=== PATIENT | female | born 1980 | race Two or more races ===

== ENCOUNTER → 2024-03-06 | Outpatient (BNVA) | payer MEDICAID, SELFPAY | END | disposition home or self-care (01) | PROVIDERS: PCP Nurse Practitioner Primary Care; Referring Provider Nurse Practitioner Primary Care; Visit Provider Nurse Practitioner Primary Care | DX: Z00.01 Encounter for general adult medical examination with abnormal findings (principal); Z23 Encounter for immunization; Z11.1 Encounter for screening for respiratory tuberculosis; N83.202 Unspecified ovarian cyst, left side; R53.83 Other fatigue; Z13.220 Encounter for screening for lipoid disorders; Z11.3 Encounter for screening for infections with a predominantly sexual mode of transmission; Z13.1 Encounter for screening for diabetes mellitus | CPT/HCPCS: 90471; 90715; 99215; A9270 ==

== ENCOUNTER → 2024-03-18 | Outpatient (BNVA) | payer MEDICAID, SELFPAY | END | disposition home or self-care (01) | PROVIDERS: PCP Nurse Practitioner Primary Care; Referring Provider Nurse Practitioner Primary Care; Visit Provider Nurse Practitioner Primary Care | DX: E78.2 Mixed hyperlipidemia (principal); R94.5 Abnormal results of liver function studies; R82.90 Unspecified abnormal findings in urine; Z71.2 Person consulting for explanation of examination or test findings | CPT/HCPCS: 99212; G0463 ==

== ENCOUNTER → 2024-03-28 | Outpatient (BNVA) | payer MEDICAID, SELFPAY | END | disposition home or self-care (01) | PROVIDERS: PCP Nurse Practitioner Family; Referring Provider Nurse Practitioner Family; Visit Provider Nurse Practitioner Family | DX: Z23 Encounter for immunization (principal) | CPT/HCPCS: 90707; 99212 ==

== ENCOUNTER 2024-05-26 | Emergency (ER) | payer MEDICAID, SELFPAY ==
[2024-05-26 00:01] VITALS: BMI 25.8
[2024-05-26 00:16] VITALS: BP 163/99; PULSE 75; RESP 18; TEMP 36.8; O2SAT 95
--- NOTE | 2024-05-26 00:21 | XR_ITS ---
Examination: Shoulder,right, 3 views Technique: Shoulder AP internal rotation, AP external rotation, Y view shoulder, 3 views Exam date and time :May 26, 2024 0031 hrs. Indications: Patient fell while snowboarding yesterday with injury to the shoulder, shoulder pain Findings: No shoulder fracture or dislocation No AC joint separation Impression: No shoulder fracture
--- NOTE | 2024-05-26 00:32 | PD.EDRME ---
Rapid Medical Screening Exam RME Arrival date/time: 05/26/24 00:00 43 yo f present to ED for c/o of shoulder injury I have greeted and performed a focused initial assessment of this patient. A comprehensive ED assessment and evaluation of the patient, analysis of all test results, and completion of the medical decision making process will be conducted by additional ED providers. Chief Complaint: Extremity Injury, Upper Time Seen by Provider: 05/26/24 00:03 Vital signs: Vital Signs Temperature 98.3 F 05/26/24 00:16 Pulse Rate 75 05/26/24 00:16 Respiratory Rate 18 05/26/24 00:16 Blood Pressure 163/99 H 05/26/24 00:16 Pulse Oximetry (%) 95 05/26/24 00:16 Oxygen Delivery Method Room Air 05/26/24 00:16
[2024-05-26] MEDS: KETOROLAC INJ 60 MG/2 ML VIAL 30 MG IM (00:37)
--- NOTE | 2024-05-26 01:42 | PRELIM_ITS ---
Radiographs of the right shoulder joint (3 views) May 26, 2024 at 0031 hours Clinical history: Shoulder injury snowboarding. Comparison: None. Findings: The glenohumeral and acromioclavicular joints are normal in configuration and alignment. The subacromial space and periarticular soft tissues are normal with no evidence of calcification. The visualized bones are of normal configuration and density. There is no fracture or dislocation. Impression: Unremarkable radiographs of the right shoulder joint. Report Electronically Signed By: Collin Dupree 05/26/2024 1:41:47 AM [EST]
--- NOTE | 2024-05-26 01:47 | PD.EDUPEX ---
Upper Extremity Injury RME/HPI General Chief Complaint: Extremity Injury, Upper Stated Complaint: fall Time Seen by Provider: 05/26/24 00:03 Arrival date/time: 05/26/24 00:00 43 year old female present to emergency room with c/o of right shoulder injury while snowboarding. LOCATION: shoulder SEVERITY: Symptoms are described as being severe with limitations on activities of daily living QUALITY: Symptoms are described as being dull or achy CONTEXT: fall on shoulder while snowboarding DURATION/TIMING: The symptoms started approximately 1 day ago and have been constant this then. ASSOCIATED SYMPTOMS: The patient is unable to identify any other associated symptoms. MODIFYING FACTORS: The patient is unable to identify any alleviating or aggravating symptoms. PERTINENT ROS: no fevers, no headache, no neck or chest pain, no unexplained nausea or vomiting, no focal neurological deficits REVIEW OF SYSTEMS: See History of Present Illness - with the exception of those mentioned in the history of present illness, all other systems reviewed and reported as negative GENERAL: In general the patient is awake, interactive, in an emergency department gurney. HEAD/EYES/EARS/NOSE/THROAT: normo-cephalic, atraumatic, mucus membranes are moist, anicteric, palpebral conjunctiva is pink, trachea is midline. CARDIOVASCULAR: regular rate and regular rhythm, no murmurs, heart sounds are not distant, strong pulses in all four extremities that are equal and symmetric bilateral upper and lower extremities, normal capillary refill. CHEST/PULMONARY: normal chest rise and fall, good air movement, clear to auscultation bilaterally, normal inspiratory to expiratory ratios without evidence of respiratory distress. NECK: No midline/Paraspinal tenderness, no step off ROM/Strenght intact No Kernig and bruzinski sign. No trauma ABDOMEN: soft, not tender, no masses appreciated BACK: normal range of motion without pain. NEUROLOGICAL: cranio-facial features are symmetric, moves all four extremities equally without obvious limitations or weakness. EXTREMITY: right shoulder tenderness, able to touch opposite shoulder and reach for the ceiling with minimal discomfort no tenderness to palpation over the long bones or large joints of the bilateral lower extremities, no joint swelling, no joint erythema, no signs of trauma, no unilateral leg swelling and no peripheral edema. SKIN: warm, dry, well-perfused, no jaundice, no rash, no telangiectasias or petechia. PSYCH: calm, cooperative, no evidence of psychosis or agitation RME / HPI RME / HPI narrative: 05/26/24 00:00 43 yo f present to ED for c/o of shoulder injury I have greeted and performed a focused initial assessment of this patient. A comprehensive ED assessment and evaluation of the patient, analysis of all test results, and completion of the medical decision making process will be conducted by additional ED providers. Related Data Home Medications ?Medication ?Instructions ?Recorded ?Confirmed No Known Home Medications 03/28/24 03/28/24 Allergies Allergy/AdvReac Type Severity Reaction Status Date / Time Penicillins Allergy Intermediate Rash Verified 05/26/24 00:06 acetaminophen (From [place]) Allergy Verified 05/26/24 00:06 hydrocodone (From [place]) Allergy Verified 05/26/24 00:06 Course Course Course Narrative: shoulder xray no acute findings rice protocol take tylenol or motrin as need rice protocol stretching exercises Quality Measures none Orders Category Date Time Status XR shoulder RT min 2V Stat Exams 05/26/24 00:21 Taken Ketorolac Inj [Toradol Inj] Med 05/26/24 00:21 Discontinued 30 mg IM X1 ONE Vital Signs Vital signs: Vital Signs Temperature 98.3 F 05/26/24 00:16 Pulse Rate 75 05/26/24 00:16 Respiratory Rate 18 05/26/24 00:16 Blood Pressure 163/99 H 05/26/24 00:16 Pulse Oximetry (%) 95 05/26/24 00:16 Oxygen Delivery Method Room Air 05/26/24 00:16 Extremity Injury Patient data External records reviewed:: [facility] previous records Clinical information provided by:: patient Social determinants that could affect healthcare access:: none Patient has the following chronic illnesses:: n/a How is presenting disease/condition affected by chronic disease/condition?: no chronic disease Evaluation data The following diagnostics were reviewed and interpreted by me:: radiology exam(s) Lab and/or radiology exams considered but not ordered:: n/a Interpretation Summary: xray: no acute findings Medications / Prescriptions Medications or Prescriptions considered but not ordered:: n/a Medication administrations:: Medication Administration History Discontinued Medications Ketorolac Tromethamine (Ketorolac Inj 60 Mg/2 Ml Vial) 30 mg IM X1 ONE Stop: 05/26/24 00:22 Last Admin: 05/26/24 00:37 Dose: 30 mg Documented By: KF as stated above Consultations Consultation(s) initiated? (list below): No Diagnosis Upper Extremity Injury Differential Diagnosis: fracture of humerus and other (contusion , strain/sprain ) Most likely diagnosis given after review of the tests above:: shoulder contusion Admission Indicated Admission indicated?: not indicated Admission Request Was there a request for admission?: No Disposition Plan Disposition Plan: Discharge Discharge Attestation Discharge Attestation: The patient and all family members were given an opportunity to ask questions and understood the discharge instructions. Discharge instructions specifically effects, indications for sooner follow up or return to the emergency department, and the expected course of current diagnosis. Patient condition: Stable Discharge Plan Plan Patient Disposition: HOME (Self Care) Health Concerns: Follow with PMD as directed Take tylenol or motrin as need Return to ED if sx worsen Prescriptions/Referrals Prescriptions/Med Rec: No Action No Known Home Medications Referrals: Na ([facility]MILAGROS Kat [Primary Care Provider] - In 1 week Problem List Clinical Impression: Contusion of right shoulder Patient/Caregiver Discharge Instructions Education Materials: ED Shoulder Contusion Print Language: Thai Stand Alone Forms: Marcela Award Info., Patient Portal Info Letter
[2024-05-26 02:12] VITALS: BP 145/76; PULSE 72; RESP 16; TEMP 36.8; O2SAT 98
== END 2024-05-26 02:14 | disposition home or self-care (01) ==
PROVIDERS: Emergency Provider Emergency Medicine; PCP Nurse Practitioner Primary Care
DX: S40.011A Contusion of right shoulder, initial encounter (principal); V00.311A Fall from snowboard, initial encounter; Y93.23 Activity, snow (alpine) (downhill) skiing, snowboarding, sledding, tobogganing and snow tubing
CPT/HCPCS: 73030; 96372; 99283; J1885

== ENCOUNTER → 2024-07-24 | Outpatient (BNVA) | payer MEDICAID, SELFPAY | END | disposition home or self-care (01) | PROVIDERS: PCP Nurse Practitioner Family; Referring Provider Nurse Practitioner Family; Visit Provider Nurse Practitioner Family | DX: Z02.1 Encounter for pre-employment examination (principal) | CPT/HCPCS: 99213 ==

== ENCOUNTER → 2024-09-30 | Outpatient (BNVA) | payer MEDICAID, SELFPAY | END | disposition home or self-care (01) | PROVIDERS: PCP Nurse Practitioner Family; Referring Provider Nurse Practitioner Family; Visit Provider Nurse Practitioner Family | DX: Z23 Encounter for immunization (principal) | CPT/HCPCS: 90471; 90707; 99212 ==

== ENCOUNTER → 2024-11-24 | Outpatient (BNVA) | payer MEDICAID, SELFPAY | END | disposition home or self-care (01) | PROVIDERS: PCP Nurse Practitioner Family; Referring Provider Nurse Practitioner Family; Visit Provider Nurse Practitioner Family | DX: R03.0 Elevated blood-pressure reading, without diagnosis of hypertension (principal) | CPT/HCPCS: 90471; 90686; 99213 ==